=== PATIENT | female | born 1970 | race American Indian/Alaskan Native ===

== ENCOUNTER 2020-04-17 11:22 | Day surgery (SDC) | payer BC ==
[2020-04-17] MEDS ORDERED: SODIUM CHLORIDE 0.9% 1000 ML 1,000 ML IV SCH (12:15)
[2020-04-17 13:01] LABS: Basophils # (Auto) 0.1 K/mm3 (0.0-0.1); Basophils % (Auto) 0.4 % (0.0-1.8); Eosinophils % (Auto) 0.3 % (0.0-4.3); Hematocrit 39.8 % (30.3-42.9); Hemoglobin 13.6 gm/dl (10.1-14.3); Lymphocytes # (Auto) 2.9 K/mm3 (1.2-5.4); Lymphocytes % (Auto) 21.4 % (13.4-35.0); Mean Corpuscular HGB Conc 34 % (30-34); Mean Corpuscular Volume 93 fl (79-97); Monocytes # (Auto) 0.7 K/mm3 (0.0-0.8); Monocytes % (Auto) 5.6 % (0.0-7.3); Platelet Count 300 K/mm3 (140-440); Red Cell Distribution Width 14.2 % (13.2-15.2)
[2020-04-17 13:14] LABS: Blood Urea Nitrogen 7 mg/dL (7-17); Calcium 8.2 mg/dL (8.4-10.2); Hemolysis Index 0
[2020-04-17 13:16] LABS: BUN/Creatinine Ratio 14
[2020-04-17 13:19] LABS: INR 0.98 (0.87-1.13)
[2020-04-17 13:20] LABS: Partial Thromboplastin Time 28.7 Sec. (24.2-36.6)
[2020-04-17] MEDS ORDERED: LIDOCAINE (2%) 20 MG/1 ML VIAL 20 ML MDV INFILTRATI ONE (13:36)
[2020-04-17] MEDS ORDERED: HEPARIN/NS 5000 UNIT/500ML 1,000 ML IR ONE (13:36)
[2020-04-17] MEDS ORDERED: HEPARIN 10,000 UNITS/10 ML VIAL ONE (13:36)
[2020-04-17] MEDS: fentaNYL 100 MCG/2 ML INJ ONE ×2 (14:10→14:20)
[2020-04-17] MEDS: MIDAZOLAM 2 MG/2 ML INJ ONE ×4 (14:10→14:45)
[2020-04-17] MEDS ORDERED: fentaNYL 100 MCG/2 ML INJ ONE (14:22)
[2020-04-17] MEDS ORDERED: diphenhydrAMINE 50 MG/ML VIAL ONE (14:25)
--- NOTE | 2020-04-17 15:31 | Short Stay Summary ---
Short Stay Documentation Date of service: 04/17/20 Narrative H&P: See H&P - History H&P: obtained from office - Allergies and Medications Current Medications: Allergies No Known Allergies Allergy (Verified 04/17/20 12:12) Active Medications Sodium Chloride (Nacl 0.9% 1000 Ml) 1,000 mls @ 42 mls/hr IV DIRECT SALLY Last Admin: 04/17/20 14:00 Dose: 1,000 mls Documented by: - Brief post op/procedure progress note Date of procedure: 04/17/20 Pre-op diagnosis: PVD with Left Lower Extremity Rest Pain Post-op diagnosis: same (Aortic Occlusive Disease with Left Lower Extremity Rest Pain) Procedure: 1. Ultrasound-Guided Access Right Common Femoral Artery 2. Catheter in Aorta 3. Diagnostic Aortogram (No Previous Films for Comparison) 4. Diagnostic Left Lower Extremity Angiogram (No Previous Films for Comparison) 5. Angioplasty and Stent of Infrarenal Aorta With 11 x 59 Viabahn Stent Graft 6. Closure of Right Femoral Arteriotomy with Pro-[place] Closure Device 7. Radiologic Supervision with Interpretation 8. 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 Surgeon: CARLOS TORRES Estimated blood loss: minimal Pathology: none Condition: stable - Disposition Condition at discharge: Good Disposition: [id number] TO HOME OR SELFCARE Short Stay Discharge Plan Activity: other (No Strenuous Activity for 24 Hours) Wound: remove dressing (In 24 hours), other (After removing the dressing it is okay to shower and wash the wound with soap and water but do not soak in water for 2 weeks.) Follow up with: CARLOS TORRES MD [Staff Physician] - 14 Days Prescriptions: Apixaban [Eliquis] 5 mg PO BID #60 tablet Clopidogrel [Plavix] 75 mg PO QDAY #90 tablet cilostazoL [Pletal] 100 mg PO BID #60 tablet Pantoprazole [Protonix] 40 mg PO QDAY #90 tablet
[2020-04-17] MEDS ORDERED: CLOPIDOGREL 300 MG TAB PO ONE (15:43)
--- NOTE | 2020-04-17 15:47 | Operative Report ---
Operative Report Operative Report: Date of Procedure: 04/17/2020 Pre-operative Diagnosis: Peripheral Vascular Disease with Left Lower Extremity R est Pain Post-operative Diagnosis: Aortic Occlusion with Left Lower Extremity Rest Pain Procedure(s): 1. Ultrasound-Guided Access Right Common Femoral Artery 2. Catheter in Aorta 3. Diagnostic Aortogram (No Previous Films for Comparison) 4. Diagnostic Left Lower Extremity Angiogram (No Previous Films for Comparison) 5. Angioplasty and Stent of Infrarenal Aorta With 11 x 59 Viabahn Stent Graft 6. Closure of Right Femoral Arteriotomy with Pro-[place] Closure Device 7. Radiologic Supervision with Interpretation 8. Monitored Moderate Sedation (Total Anesthesia Time: 71 Minutes) Surgeon: Davonte Ramírez M.D. Pet Sitter: None Anesthesia: Monitored Moderate Sedation Total Anesthesia Time: 71 Minutes EBL: Minimal Counts: Correct Complications: None Condition: Stable Specimen: None Indication: The patient is a 50-year-old female who presented to the office with complaints of 1 month of discoloration and rest pain of the third through fifth toes of her left foot. An arterial duplex demonstrated monophasic flow throughout bilateral lower extremities. She is in need of a diagnostic angiogram with possible intervention. She was given the risk, benefits, and alternative procedures and consented to the procedure. Angiographic Findings: The diagnostic aortogram revealed that bilateral renal arteries were patent without evidence of stenosis or thrombus. Approximately 4 cm below the left renal artery there was near total occlusion of the aorta with plaque and what appeared to be some thrombus within the lesion. The area of occlusion was approximately 2 cm in length. The remainder of the aorta was patent without evidence of aneurysmal dilatation or flow-limiting stenosis. Bilateral common iliac arteries were widely patent. The left lower extremity angiogram revealed that the external iliac artery and hypogastric artery were patent without evidence of flow-limiting stenosis. The common femoral artery and profunda artery were patent without evidence of flow-limiting stenosis or thrombus. The SFA and popliteal artery were patent without evidence of flow-limiting stenosis or thrombus. The patient had three-vessel runoff however the peroneal artery occluded in the upper third of the calf. Both the posterior tibial artery and anterior tibial artery were patent throughout the remainder of the course without any evidence of flow-limiting stenosis or thrombus. At the completion of the case the aorta was patent with less than 10% residual stenosis and no evidence of residual thrombus within the aorta. There was no evidence of distal emboli at the completion of the case. Description of Procedure: The patient was brought to the [facility] and laid in supine position. After timeout was performed bilateral groins were prepped and draped in normal sterile fashion. Ultrasound was used to identify the right common femoral artery and confirm patency. Once patency was confirmed the overlying skin and soft tissue was anesthetized with lidocaine. An 11 blade was used to make a small stab incision and then a curved hemostat was used with ultrasound guidance to bluntly dissect down to the anterior surface of the right common femoral artery. A 21- gauge micropuncture needle was used ultrasound guidance in the right common femoral artery and a 0.018 micropuncture wire was advanced into the artery. The needle was removed and the micropuncture sheath was advanced over the wire by Seldinger technique. The inner cannula and wire were removed and a 0.035 Bentson wire was advanced into the aorta. The micropuncture sheath was removed and a 5 Spanish sheath was placed by Seldinger technique. Of note the Bentson wire appeared to curl in the mid aorta. An Omni Flush catheter was advanced over the Bentson wire and a diagnostic aortogram is performed. There appeared to be an occlusion above the Omni Flush catheter. I reinserted the Bentson wire and was able to advance the Omni Flush catheter above the area of occlusion and performed a diagnostic aortogram which confirmed the finding of near total occlusion with the Omni Flush catheter being occlusive within the stenosis. I reinserted the Bentson wire and pulled the catheter below the area of occlusion and then used the catheter and wire to advance up and over the bifurcation and then performed the left lower extremity angiogram with the previously described findings. I inserted a 0.035 advantage wire and pulled the catheter back over the bifurcation and into the aorta. I then advanced the advantage wire into the proximal aorta. I then exchanged the 5 Spanish sheath for an 8 Spanish 25 cm destination sheath and at this point I systemically heparinized the patient with 5000 as of heparin IV. I performed an aortogram through the 8 Spanish sheath which allowed me to plan for placement of the stent graft to cover the area of stenosis. I chosen 11 x 59 Viabahn Stent Graft which I advanced into position approximately 2 cm below the left renal artery and approximately 3 to 4 cm above the iliac bifurcation. I deployed the stent graft and removed the delivery catheter. I reinserted the dilator and 8 Spanish sheath and advanced it into the aorta above the level of the stent graft and performed an aortogram which revealed the stent graft was well opposed with less than 10% residual stenosis and no evidence of residual thrombus within the aorta. I pulled the sheath down to just above the bifurcation and performed bilateral iliofemoral angiograms to include the distal external iliac arteries as well as the common femoral arteries, profunda arteries, and proximal SFAs. This revealed no evidence of distal emboli. At this point I removed the 8 Spanish sheath and used a Pro-glide closure device to close the right femoral arteriotomy. A sterile dressing was then applied to the groin entry site. Physical exam of the patient revealed that the patient had palpable dorsalis pedis and posterior tibial pulses bilaterally. The patient tolerated the procedure well and was transported to the recovery area in stable condition.
[2020-04-17] MEDS ORDERED: APIXABAN 5 MG TAB PO SCH (16:00)
[2020-04-17 17:41] VITALS: BP 157/81
== END 2020-04-17 17:44 | disposition home or self-care (01) ==
LOC: CATHLABREC 11:22
PROVIDERS: ATTEND Surgery Vascular Surgery
DX: I70.222 Atherosclerosis of native arteries of extremities with rest pain, left leg (principal); F17.210 Nicotine dependence, cigarettes, uncomplicated; Z98.890 Other specified postprocedural states; Z79.899 Other long term (current) drug therapy
CPT/HCPCS: 36415; 37236; 75625; 75710; 80048; 85025; 85610; 85730; 99156; 99157; C1760; C1769; C1874; C1887; J1200; J1644; J2250; J3010; J7030; Q9967